=== PATIENT | female | born 1965 | race Hispanic/Latino ===

== ENCOUNTER → 2017-01-27 | Day surgery (SDC) ==
--- NOTE | 2017-01-27 12:01 | OPERATIVE NOTE ---
PROCEDURE DATE: 01/27/2017 PREOPERATIVE DIAGNOSIS: Left breast mass. POSTOP DIAGNOSIS: Left breast mass. PROCEDURE ULTRASOUND: Ultrasound-guided core needle biopsy of left breast mass. SURGEON: Benny Linn MD ESTIMATED BLOOD LOSS: Scant. COMPLICATIONS: None apparent. FINDINGS: A 5 x 7 mm hypoechoic nodule just superior to the nipple on the left. TECHNIQUE: The skin was prepped with chlorhexidine. Lidocaine 1% was used to anesthetize the skin. Under ultrasound guidance, this lesion was identified and then a biopsy needle was advanced through a small stab incision in the skin down into the lesion. Multiple core biopsies were taken through portions of the nodule. She tolerated this well and a clip was placed through the shift adjacent to our biopsy cavity. She will follow up with me in 1 week. A Steri-Strip dressing was placed on the skin.
== END | disposition home or self-care (01) ==
LOC: EDSTATUS 07:30 → US 07:47
PROVIDERS: ATTEND Surgery
DX: N63 Unspecified lump in breast (principal)
CPT/HCPCS: 19083; 88305; 88313; A4648